=== PATIENT | female | born 1960 | race Caucasian/White ===

== ENCOUNTER 2018-04-02 18:11 | Emergency (ER) | payer OTHER ==
[~2018-04-02] VITALS: Ht 160 cm; Wt 64.3 kg
[2018-04-02 18:21] VITALS: BP 153/89
[2018-04-02] MEDS ORDERED: BUPIVACAINE/PF 0.5% ONE (18:57)
[2018-04-02] MEDS ORDERED: HYDROmorphone 2 MG/ML, 1ML ONE (18:58)
[2018-04-02] MEDS ORDERED: ONDANSETRON ODT 4 MG ONE (18:58)
[2018-04-02] MEDS ORDERED: ONDANSETRON ODT 4 MG PO ONE (19:00)
[2018-04-02] MEDS ORDERED: HYDROmorphone 1 MG/ML, 1ML IM ONE (19:00)
[2018-04-02] MEDS ORDERED: BUPIVACAINE/PF-EPI 0.25% 1:200K SQ ONE (19:00)
[2018-04-02] MEDS ORDERED: BUPIVACAINE/PF 0.5% INFIL ONE (19:00)
[2018-04-02] MEDS ORDERED: IBUPROFEN 200 MG TABLET PO ONE (19:30)
[2018-04-02] MEDS ORDERED: IBUPROFEN 200 MG TABLET ONE (19:56)
== END 2018-04-02 20:32 | disposition home or self-care (01) ==
LOC: ED 20:00
DX: S52.572A Other intraarticular fracture of lower end of left radius, initial encounter for closed fracture (principal); S52.615A Nondisplaced fracture of left ulna styloid process, initial encounter for closed fracture; Z91.041 Radiographic dye allergy status; Z91.013 Allergy to seafood; W10.8XXA Fall (on) (from) other stairs and steps, initial encounter; Y93.01 Activity, walking, marching and hiking; Y92.098 Other place in other non-institutional residence as the place of occurrence of the external cause; Y99.8 Other external cause status
CPT/HCPCS: 29125; 73110; 73130; 96372; 99284; J1170; Q0162